=== PATIENT | female | born 1960 | race Caucasian/White ===

== ENCOUNTER → 2023-09-30 | Outpatient (CLI) | payer SELFPAY ==
--- NOTE | 2023-09-30 13:36 | CT_ITS ---
CT RIGHT LOWER EXTREMITY WITH 3-D IMAGING CLINICAL INDICATION: OA TECHNIQUE: Axial CT images of the right lower extremity (including right hip, right knee, and right ankle) was performed without IV contrast material. Coronal and sagittal reformats were provided. RADIATION DOSAGE (If Supplied By Facility): CTDIvol = ( 19.06 ) mGy, DLP = ( 1252.70 ) mGycm COMPARISON: No relevant prior comparison study available. FINDINGS: Bones: There is a right hip arthroplasty in place, with no periprosthetic fracture. There is moderate degenerative arthrosis of the medial femorotibial compartment of the right knee with moderate joint space narrowing and marginal osteophyte formation. There is mild degenerative arthrosis of the patellofemoral and lateral femorotibial compartments of the right knee with marginal osteophyte formation. Unremarkable right ankle. Osseous structures are intact without evidence of fracture or dislocation. No lytic or blastic osseous masses. Soft Tissues: There is a small right knee joint effusion. The deep soft tissue structures are unremarkable. The superficial soft tissues are unremarkable without evidence of edema, hematoma, or foreign body. CT/Extremity Lower without Contra IMPRESSION: Tricompartment degenerative arthrosis of the right knee, most pronounced in the medial femorotibial compartment. Small right knee joint effusion. Electronically Signed: Casper George MD at 14:32 EDT Reading Location ID and State: [facility] / [place] , Service support ,
== END | disposition home or self-care (01) ==
PROVIDERS: PCP Internal Medicine; Referring Provider Student in an Organized Health Care Education/Training Program; Visit Provider Student in an Organized Health Care Education/Training Program
DX: M17.11 Unilateral primary osteoarthritis, right knee (principal)
CPT/HCPCS: 73700; 93005

== ENCOUNTER → 2023-10-07 | Outpatient (CLI) | payer SELFPAY ==
[2023-10-07 10:34] LABS: Absolute Lymphocyte Count 1.82 X10^3/uL (0.83-4.51); Absolute Neutrophil Count 3.1 X10^3/uL (2.0-7.7); Basophil# 0.05 X10^3/uL; Basophil% 0.9 % (0-1); Eosinophil# 0.41 X10^3/uL; Eosinophils% 7.1 % (0-5); Hemoglobin 13.7 g/dL (12.0-15.0); Lymphocyte # 1.82 X10^3/ul (0.83-4.51); Lymphocyte % 31.5 % (19-41); Mean Corp Hgb Conc 32.6 g/dL (32-36); Mean Corpuscular Hgb 29.6 pg (27.0-32.0); Mean Corpuscular Volume 90.7 fL (81-99); Mean Platelet Vol. 11.4 fl (6.2-12.0); Monocyte% 6.9 % (0-10); NRBC Flagged by Analyzer 0 % (0-5); Neutrophil # 3.09 X10^3/uL (2.7-7.7); Neutrophil % 53.4 % (47-70); Platelet Count 238 K/mm3 (150-450); RBC Distribution Width CV 12.4 % (11.6-14.6); RBC Distribution Width SD 41.2 fl (35.1-43.9); Red Blood Count 4.63 M/mm3 (4.2-5.4); White Blood Count 5.8 K/mm3 (4.4-11.0)
[2023-10-07 11:18] LABS: ALB/GLOB Ratio 0.9 RATIO (0.9-2.4); AST(SGOT) 11 U/L (15-37); Alanine Aminotransfer ALT/SGPT 19 U/L (13-56); Albumin, Serum 3.5 g/dL (3.2-5.0); Alkaline Phosphatase 84 U/L (45-117); Anion Gap 9 (5-15); BUN 18 mg/dL (7-18); BUN/Creat Ratio 18.1 RATIO (10-20); Calcium,Total 8.8 mg/dL (8.5-10.1); Chloride 106 mmol/L (98-107); EST Glomerular Filtration Rate 60 mL/min (>60); Est Glom Filt Rate - Afr Amer 72 mL/min (>60); Globulin 3.7 g/dL (2.2-4.2); Glucose 109 mg/dL (74-106); Potassium 3.9 mmol/L (3.5-5.1); Protein, Total 7.2 g/dL (6.4-8.2); Sodium Level 137 mmol/L (136-145)
[2023-10-07 11:19] LABS: Hemoglobin A1c 5.2 % (3.8-5.6)
== END | disposition home or self-care (01) ==
PROVIDERS: PCP Internal Medicine; Referring Provider Student in an Organized Health Care Education/Training Program; Visit Provider Student in an Organized Health Care Education/Training Program
DX: M17.11 Unilateral primary osteoarthritis, right knee (principal); M25.761 Osteophyte, right knee; M22.11 Recurrent subluxation of patella, right knee
CPT/HCPCS: 36415; 80053; 83036; 85025

== ENCOUNTER → 2023-10-21 | Outpatient (CLI) | payer SELFPAY ==
--- NOTE | 2023-10-21 07:15 | KNEE_PTH ---
PATIENT: FRANKLIN COOLEY LOC: [facility] U#:[id number] AGE/SX: 63/F ROOM: RE10/21/[address]: Dr. Yosvany Gay DO : 1960 BED: DIS: 10/21/2023 SPEC #: [id number] RECD: 10/21/23 15:18 STATUS: PARKER REDian #: [id number] ROM: 10/21/23 07:[address]: Yosvany Gay DEPT: SURGICAL PATHOLOGY RECD BY: Leti Castrejon ENTERED: 10/22/23 10:55 SP TYPE: TOTAL KNEE OTHR DR: Dr. Stephanie Flanagan MD Tissues: A - Synovial tissue of joint, NOS B - Knee, NOS Procedures: Decalcification bone/plaque Surgery Specimen Level IV HEADER OPERATION: Right robotic assisted total knee arthroplasty PRE-OP DIAGNOSIS: Grade IV osteoarthritis, right knee TISSUE SUBMITTED: A- Right knee synovium, B- Right knee bone and tissue MICROSCOPIC DIAGNOSIS A. Right knee synovium, excision: Fragments of fibroadipose tissue, fibroconnective tissue, skeletal muscle tissue and moderately reactive synovial tissue. B. Bone and soft tissue, right knee, total knee replacement/resection: Pieces of bone with degenerative osteoarthritic changes. Fibroadipose tissue, fibroconnective tissue and reactive synovial tissue. AKBAR: 10/27/2023 MICROSCOPIC DESCRIPTION Slides are reviewed. GROSS DESCRIPTION A. Received in fixative is one container labeled with the patient's name and designated Right knee synovium. The specimen consists of multiple pieces of yellow-orange soft tissue measuring in aggregate 6.5 x 5.0 x 2.0cm. No mass lesion is identified. Industrial Maintenance Mechanic sections are submitted in two cassettes. B. Received is one container designated bone and soft tissue right knee. The specimen consists of multiple fragments of joseph-yellow bone measuring in aggregate 11.0 x 10.5 x 3.0 cm. Also present in the specimen container are multiple fragments of yellow-white soft tissue measuring in aggregate 9.0 x 8.0 x 3.0 cm. A number of bony fragments contain articular surfaces consistent with tibial plateau and femoral condyle and displaying prominent osteophyte formation, eburnation and bone erosion. Industrial Maintenance Mechanic sections are submitted in two cassettes as follows: 1 - soft tissue, 2 - bone after decalcification. / AKBAR/ 10/22/2023 TC:5 CPT: 25634b0, 88725
== END | disposition home or self-care (01) ==
LOC: LABSPEC 16:49
PROVIDERS: PCP Internal Medicine; Referring Provider Student in an Organized Health Care Education/Training Program; Visit Provider Student in an Organized Health Care Education/Training Program
DX: M17.11 Unilateral primary osteoarthritis, right knee (principal)
CPT/HCPCS: 88305; 88311

== ENCOUNTER → 2024-06-15 | Outpatient (CLI) | payer SELFPAY ==
--- NOTE | 2024-06-15 07:57 | CT_ITS ---
PROCEDURE: EXTREMITY LOWER WITHOUT CONTRA REASON FOR EXAM: Osteoarthritis. Pain. TECHNIQUE: Noncontrasted CT of the femora and pelvis, with sagittal and coronal reconstructed images also obtain ed. COMPARISON: Prior CT examination 09/30/2023. FINDINGS: Evaluation limited by metallic artifact from a right total knee prosthesis and from a right total hip prosthesis. A small right knee joint effusion is noted. No findings are seen to suggest loosening of the right k nee prosthesis. No significant left knee joint effusion is noted. Tricompartmental left knee degenerative changes are seen, with probable mild medial joint narrowing. Moderate to severe narrowing of the patellofemoral articulation is seen, also with lateral subluxatio n of the patella prominently noted. No evidence of loosening of the right hip prosthesis is seen. Moderate left hip joint degenerative changes are noted, with moderately severe central joint narrowin g, in particular present. No evidence of left femoral head osteonecrosis. No acute fracture or dislocation is seen. Of the visualized lumbosacral spine, significant degenerative changes are noted, particularly at the lumbosacral junction. CT/Extremity Lower without Contra IMPRESSION: 1. Moderate left hip joint degenerative changes. 2. Right knee prosthesis, also with joint effusion present. 3. No evidence of loosening of either the right total hip prosthesis or the rig ht total knee prosthesis is identified. 4. Left knee degenerative changes, most prominent at the patellofemoral articul ation, also with lateral subluxation of the patella noted. One or more dose reduction techniques were used (e.g., Automated exposure contr ol, adjustment of the mA and/or kV according to patient size, use of iterative reconstruction technique). Reading Location: [id number]
== END | disposition home or self-care (01) ==
PROVIDERS: PCP Internal Medicine; Referring Provider Student in an Organized Health Care Education/Training Program; Visit Provider Student in an Organized Health Care Education/Training Program
DX: M16.12 Unilateral primary osteoarthritis, left hip (principal)
CPT/HCPCS: 73700

== ENCOUNTER 2024-06-28 09:04 | Day surgery (SDC) | payer SELFPAY ==
[2024-06-15 08:48] LABS: Absolute Lymphocyte Count 1.88 X10^3/uL (0.83-4.51); Absolute Neutrophil Count 3.1 X10^3/uL (2.0-7.7); Basophil# 0.05 X10^3/uL; Basophil% 0.9 % (0-1); Eosinophil# 0.11 X10^3/uL; Hematocrit 40.7 % (37-47); Hemoglobin 13.6 g/dL (12.0-15.0); Lymphocyte # 1.88 X10^3/ul (0.83-4.51); Lymphocyte % 33.5 % (19-41); Mean Corp Hgb Conc 33.4 g/dL (32-36); Mean Corpuscular Hgb 29.2 pg (27.0-32.0); Mean Corpuscular Volume 87.3 fL (81-99); Mean Platelet Vol. 11.2 fl (6.2-12.0); Monocyte# 0.41 X10^3/uL; Monocyte% 7.3 % (0-10); NRBC Flagged by Analyzer 0 % (0-5); Neutrophil # 3.14 X10^3/uL (2.7-7.7); Neutrophil % 55.9 % (47-70); Platelet Count 233 K/mm3 (150-450); RBC Distribution Width CV 12.5 % (11.6-14.6); RBC Distribution Width SD 39.6 fl (35.1-43.9); Red Blood Count 4.66 M/mm3 (4.2-5.4); White Blood Count 5.6 K/mm3 (4.4-11.0)
[2024-06-15 09:10] LABS: Albumin, Serum 3.6 g/dL (3.2-5.0); Anion Gap 6 (5-15); BUN 21 mg/dL (7-18); BUN/Creat Ratio 22.4 RATIO (10-20); Calcium,Total 9.7 mg/dL (8.5-10.1); Chloride 107 mmol/L (98-107); Creatinine, Serum 0.94 mg/dL (0.55-1.02); EST Glomerular Filtration Rate 64 mL/min (>60); Est Glom Filt Rate - Afr Amer 77 mL/min (>60); Glucose 94 mg/dL (74-106); Potassium 3.7 mmol/L (3.5-5.1); Sodium Level 139 mmol/L (136-145)
[2024-06-15 09:19] LABS: Magnesium 2.2 mg/dL (1.6-2.6)
[2024-06-28] VITALS (11 sets, daily range): BP systolic 108–134; BP diastolic 60–88; PULSE 57–96; RESP 16–17; TEMP 36.1–36.6; O2SAT 97–100; BMI 34.8
[2024-06-28] MEDS: Lactated Ringers 1,000 ML 999 ML IV (09:39)
[2024-06-28] MEDS: Magnesium 1 GM over 15 mins IV (09:39)
[2024-06-28] MEDS: Acetaminophen 500 MG Tablet 1000 MG PO (09:40)
[2024-06-28] MEDS: Gabapentin 600 MG Tablet PO (09:40)
[2024-06-28] MEDS: Celecoxib 200 MG Capsule 400 MG PO (09:40)
--- NOTE | 2024-06-28 10:10 | PCM.PRE.AN2 ---
ASA Classification* ASA Classification ASA Classification: 2 Assessment & Plan Anesthesia* Anesthesia Assessment Anesthesia Assessment: Discussed sedation and/or anesthesia options, risks, benefits, and alternatives with patient/parents/legal guardian/POA. Questions invited. The patient/parents/legal guardian/POA seems to understand and agrees to proceed with anesthesia plan. Reviewed the physical assessment, medical history, allergy history and patient home medications list prior to surgery/procedure/anesthetic and documented any changes. Performed airway and anesthesia risk assessments. Anesthesia Type Anesthesia Type: Spinal Anesthesia Focused Assessment* Temperature: 98 F Pulse Rate: 93 Blood Pressure: 134/85 Respiratory Rate: 16 Pulse Ox: 97 Airway Assessment Mouth opens: >3 cm Mallampati Score: II Focused Labs Anesthesia Preop lab: CBC WBC 5.6 K/mm3 (4.4-11.0) 06/15/24 08:23 06/15/24 RBC 4.66 M/mm3 (4.2-5.4) 06/15/24 08:23 06/15/24 Hgb 13.6 g/dL (12.0-15.0) 06/15/24 08:23 06/15/24 Hct 40.7 % (37-47) 06/15/24 08:23 06/15/24 Plt Count 233 K/mm3 (150-450) 06/15/24 08:23 06/15/24 CHEMISTRY Potassium 3.7 mmol/L (3.5-5.1) 06/15/24 08:23 06/15/24 Sodium 139 mmol/L (136-145) 06/15/24 08:23 06/15/24 Magnesium 2.2 mg/dL (1.6-2.6) 06/15/24 08:23 06/15/24 BUN 21 mg/dL (7-18) H 06/15/24 08:23 06/15/24 Creatinine 0.94 mg/dL (0.55-1.02) 06/15/24 08:23 06/15/24 Glucose 94 mg/dL (74-106) 06/15/24 08:23 06/15/24 COAG Pre-Assessment Diagnosis/Proposed Procedure Planned Operative Procedure(s): ROBOTIC ASSISTED LEFT TOTAL HIP ARTHROPLASTY Anesthesia History Anesthesia History - adobe layer: Anesthesia History - adobe layer Hx Hospitalization No 06/03/24 14:08 Any Problems With Anesthesia No 06/03/24 14:08 Cholinesterase deficiency No 06/03/24 14:08 You/Your Family Experience No 06/03/24 14:08 fever (hyperthermia) with Relationship Recent Exposure to Contagious No 06/28/24 09:27 Disease Does patient have nerve No 06/03/24 14:08 stimulator Patient instructed to have device shut off --Does patient have Pacemaker No 06/28/24 09:27 or ICD? When Was Last Pacemaker Check QUESTION #4 FULL TEXT: You/Your Family Experience fever (hyperthermia) with Anesthesia Last Oral Intake Last Oral intake: Last Oral Intake NPO since 23:30 06/28/24 09:27 Meds taken in AM with sips of No 06/28/24 09:27 water? Meds patient instructed to take am of surgery PONV PONV - adobe layer: PONV - adobe layer Female Yes 06/03/24 14:08 HX of Motion Sickness No 06/03/24 14:08 HX of N/V After Surgery No 06/03/24 14:08 Non-Smoker Yes 06/03/24 14:08 Duration of Surgery greater Yes 06/03/24 14:08 than 60 minutes Number of Risk Factors 3 06/03/24 14:08 PONV Score Moderate Risk 06/03/24 14:08 Height & Weight Height & Weight: Anesthesia: Height & Weight Height 5 ft 5 in 06/28/24 09:27 Weight: 95 kg 06/28/24 09:27 Body Mass Index (BMI) 34.8 06/28/24 09:27 Respiratory Assessment Respiratory Assessment - adobe layer: Respiratory Tract Infection Hx - adobe layer Hx Respiratory Tract Infection No 06/03/24 14:08 STOP Sleep Apnea STOP Sleep Apnea - adobe layer: STOP Sleep Apnea - adobe layer Hx Hypertension Yes: CONTROLLED WITH MED 06/03/24 14:08 Hx Sleep Apnea No 06/03/24 14:08 CPAP BIPAP Do you snore loudly (louder No 06/03/24 14:08 than talking or can be heard Do you often feel tired/ No 06/03/24 14:08 fatigued/ sleepy during daytime? Has anyone observed you stop No 06/03/24 14:08 breathing during sleep? STOP Results Negative 06/03/24 14:08 QUESTION #5 FULL TEXT : Do you snore loudly (louder than talking or can be heard through closed doors)? Tobacco Use History Tobacco Use History - adobe layer: Tobacco Use History - adobe layer Tobacco Use Smoking Status Never smoker 06/03/24 14:08 Hx Tobacco Use No 06/03/24 14:08 Years Smoking Packs Smoked per Day Smoking Cessation Date was within the last 15 years Hx Smoking Cessation Date Hx Smoking Cessation Counseling Hematologic Medial History Hematologic Hx - adobe layer: Hematologic Medical Hx - insurance claims processor Hx of Blood Transfusion No 06/03/24 14:08 Hx of Transfusion in last 3 No 06/03/24 14:08 Months Date of Last Transfusion (if within last 3 months) Ever experience any problems No 06/03/24 14:08 with transfusion(s)? Specify any problems Hx of Preganancy in last 3 No 06/03/24 14:08 Months Nurse Filling Out Transfusion DSCHRIBER 06/03/24 14:08 & Questions: Date: 06/03/24 06/03/24 14:08 Time: 14:09 06/03/24 14:08 Patient unable to answer at this time (ie. confused, unrespo /Reproduction History /Reproductive History - adobe layer: /Reproductive Hx- adobe layer Hx Now No 06/03/24 14:08 Gestational Age (in weeks): EDC: Hx Hx Para Hx Section SAB No 06/03/24 14:08 Active Medications Active Medications: Current Medications Generic Name Dose Route Start Last Admin Trade Name Freq PRN Reason Stop Dose Admin Acetaminophen 1,000 mg 06/28/24 11:20 06/28/24 09:40 Acetaminophen 500 Mg Tablet PO 06/28/24 11:21 1,000 mg X1 ONE Administration Celecoxib 400 mg 06/28/24 11:20 06/28/24 09:40 Celecoxib 200 Mg Capsule PO 06/28/24 11:21 400 mg X1 ONE Administration Sodium Chloride 77.4 ml/ 0 ml 06/28/24 11:20 Ropivacaine 200 mg/ OPERA.SITE 06/28/24 11:21 Epinephrine HCl 0.6 mg/ X1 ONE Ketorolac Tromethamine 30 mg/ Morphine Sulfate 5 mg Dexamethasone Sodium Phosphate 10 mg 06/28/24 11:20 Dexamethasone 10 Mg/Ml Vial IV 06/28/24 11:21 X1 ONE Gabapentin 600 mg 06/28/24 11:20 06/28/24 09:40 Gabapentin 600 Mg Tablet PO 06/28/24 11:21 600 mg X1 ONE Administration Lactated Ringer's 1,000 mls @ 999 mls/hr 06/28/24 11:20 06/28/24 09:39 IV 06/28/24 12:20 999 mls/hr .Q1H1M SRAVANTHI Administration Cefazolin Sodium 2 gm/ N/A 20 mls @ 400 mls/hr 06/28/24 11:20 IV 06/28/24 11:22 PREOP ONE Tranexamic Acid 1,000 mg/ 110 mls @ 660 mls/hr 06/28/24 11:20 Sodium Chloride IV 06/28/24 11:29 X1 ONE Tranexamic Acid 1,000 mg/ 110 mls @ 660 mls/hr 06/28/24 12:20 Sodium Chloride IV 06/28/24 12:29 X1 ONE Lactated Ringer's 1,000 mls @ 999 mls/hr 06/28/24 12:20 IV 06/28/24 13:20 .Q1H1M SRAVANTHI Lactated Ringer's 1,000 mls @ 125 mls/hr 06/28/24 13:20 IV 06/28/24 21:19 .Q8H SRAVANTHI Magnesium Sulfate 1 gm/ 102 mls @ 408 mls/hr 06/28/24 11:20 06/28/24 09:39 Dextrose IV 06/28/24 11:34 408 mls/hr X1 ONE Administration Insulin Human Lispro 1 - 6 unit 06/28/24 11:20 Insulin Lispro 100 Unit/Ml Insuln.Pen SC 06/28/24 17:20 Q4H PRN PRN BG>/= 180, SEE PROTOCOL Protocol PFSH Medical History Cancer Post-menopausal Alcohol use Arthritis Back pain Heartburn Non-smoker History of pain when walking History of echocardiogram History of stress test Hypertension Home Medications ?Medication ?Instructions ?Recorded ?Last Taken ?Type calcium carbonate (Calcium 600) 600 mg PO DAILY 06/03/24 Unknown History cholecalciferol (vitamin D3) 50 100 mcg PO DAILY 06/03/24 Unknown History mcg (2,000 unit) tablet (Vitamin D3) losartan 50 mg tablet (Cozaar) 50 mg PO DAILY 06/03/24 06/27/24 History Allergy/AdvReac Type Severity Reaction Status Date / Time No Known Allergies Allergy Verified 06/28/24 09:27 Surgical History Hx of colonoscopy Hx of bilateral oophorectomy History of lumpectomy of right breast Hx of total hip arthroplasty Hx of total knee arthroplasty Social History Smoking Status: Never smoker Review of Systems (Anesthesia) ROS Narrative System reviewed and no additional complaints, except as documented.
[2024-06-28 10:11] LABS: Bedside Glucose 97 mg/dL (74-106)
--- NOTE | 2024-06-28 11:20 | FEM_PTH ---
PATIENT: FRANKLIN COOLEY LOC[place] [facility] [place][id number] AGE/SX: 64/F ROOM: RE06/28/[address]: Dr. Yosvany Gay DO : 1960 BED: DIS: 06/28/2024 SPEC #: [id number] RECD: 06/28/24 17:59 STATUS: PARKER REQ #: [id number] ROM: 06/28/24 11:[address]: Yosvany Gay DEPT: SURGICAL PATHOLOGY RECD BY: Leti Castrejon ENTERED: 06/29/24 07:43 SP TYPE: FEM HEAD OTHR DR: Dr. Stephanie Flanagan MD Tissues: Femoral region, NOS Procedures: Decalcification bone/plaque Surgery Specimen Level V HEADER OPERATION: Robotic assisted left total hip arthroplasty PRE-OP DIAGNOSIS: Osteoarthritis left hip TISSUE SUBMITTED: Left femoral head MICROSCOPIC DIAGNOSIS Left hip bone and soft tissue, total hip replacement/resection: Femoral head with degenerative osteoarthritic changes. SJ: 07/02/2024 MICROSCOPIC DESCRIPTION Slides are reviewed. GROSS DESCRIPTION Received is one container labeled with the patient's name and designated bone and soft tissue left hip. The specimen consists of a joseph femoral head with portion of femoral neck. The femoral head measures 5.5 x 5.5 x 3.5 cm and the femoral neck measures up to 1.5 cm in length. The articular surface displays prominent osteophyte formation, eburnation and bone erosion. Soft tissue entirely consists of bone reamings measuring in aggregate 5 x 4 x 1 cm. Woodwind Instrument Repairer sections are submitted in two cassettes as follows: 1 - bone reamings, 2 - bone after decalcification. / AKBAR. 06/29/2024 TC:5 [facility]: [id number], [id number]
[2024-06-28] MEDS: Cefazolin 2 GM in Syringe 10 ML IV (11:36)
[2024-06-28] MEDS: dexAMETHasone 10 MG/ML Vial IV (11:55)
[2024-06-28] MEDS: TXA 1000mg in NS100 100ml (IVPB at Incision) 660 MG IV (11:55)
[2024-06-28] MEDS: JPS (Morphine 10mg/ml) OPERA.SITE (13:07)
[2024-06-28] MEDS: TXA 1000mg in NS100 100ml (IVPB at Closure) 660 MG IV (13:27)
--- NOTE | 2024-06-28 14:40 | RAD_ITS ---
PROCEDURE: HIP MIN 2 VIEWS (PORTABLE) REASON FOR EXAM: Postop. TECHNIQUE: Two-view postoperative left hip, to include a low centered AP pelvis COMPARISON: None. RAD/Hip Min 2 Views (Portable) IMPRESSION: Limited imaging of the right hip shows stable appearance of the total hip prost hesis. A left total hip prosthesis is seen, with satisfactory alignment. No complication is seen. No fracture site is evident. Reading Location: [id number]
--- NOTE | 2024-06-28 15:16 | PCM.POST.ANE ---
Anesthesia: Postop Eval I Current Vital Signs Temperature: 98 F Pulse Rate: 93 Blood Pressure: 134/85 Respiratory Rate: 17 Pulse Ox: 98 Oxygen Delivery Method: Room Air Assessment Airway patent: Yes Spontaneous unlabored respirations: Yes Mental status: Awake and Calm nausea: No Vomiting: No Anesthesia Complication: No Fluid Hydration Crystalloid volume administer (ml): 1,300 Total IV fluid infused: 1,300 Progress Note Anesthesia document: Postop Eval 1 completed: Yes
--- NOTE | 2024-06-28 15:52 | POSTOPAN2_ITS ---
Anesthesia Postop Eval I Sum Postop Eval Completion status Anesthesia document: Postop Eval 1 completed: Yes Anesthesia Postop Eval I Summary Anesthesia Postop Eval I Summary: Anesthesia Postop Eval I: Assessment Summary Airway patent Yes 06/28/24 15:16 MEDICAL SERVICE REPRESENTATIVE.[email or web address] Spontaneous unlabored Yes 06/28/24 15:16 MEDICAL SERVICE REPRESENTATIVE.[email or web address] respirations Mental status Awake,Calm 06/28/24 15:16 MEDICAL SERVICE REPRESENTATIVE.[email or web address] nausea No 06/28/24 15:16 MEDICAL SERVICE REPRESENTATIVE.[email or web address] Vomiting No 06/28/24 15:16 MEDICAL SERVICE REPRESENTATIVE.JBLOU Anesthesia Postop Eval I: Fluid Summary Crystalloid volume administer 1,300 06/28/24 15:16 MEDICAL SERVICE REPRESENTATIVE.JBLOU (ml) Colloids volume administered ( ml) Blood Product volume administered (ml) Total IV fluid infused 1,300 06/28/24 15:16 MEDICAL SERVICE REPRESENTATIVE.JBLOU Anesthesia Postop Eval I: Summary Notes Anesthesia Complication No 06/28/24 15:16 MEDICAL SERVICE REPRESENTATIVE.JBLOU Anesthesia Complication Comment: Post-operative progress note Anesthesia: Postop Eval II Evaluation Mental status: Awake Pain Level: 1 nausea: No Vomiting: No
--- NOTE | 2024-06-28 15:52 | PCM.POSTANE2 ---
Anesthesia Postop Eval I Sum Postop Eval Completion status Anesthesia document: Postop Eval 1 completed: Yes Anesthesia Postop Eval I Summary Anesthesia Postop Eval I Summary: Anesthesia Postop Eval I: Assessment Summary Airway patent Yes 06/28/24 15:16 LANDING SCALER.[email or web address] Spontaneous unlabored Yes 06/28/24 15:16 LANDING SCALER.[email or web address] respirations Mental status Awake,Calm 06/28/24 15:16 LANDING [email or web address].[email or web address] nausea No 06/28/24 15:16 LANDING SCALER.[email or web address] Vomiting No 06/28/24 15:16 LANDING SCALER.[email or web address] Anesthesia Postop Eval I: Fluid Summary Crystalloid volume administer 1,300 06/28/24 15:16 LANDING SCALER.JBLOU (ml) Colloids volume administered ( ml) Blood Product volume administered (ml) Total IV fluid infused 1,300 06/28/24 15:16 LANDING SCALER.[email or web address] Anesthesia Postop Eval I: Summary Notes Anesthesia Complication No 06/28/24 15:16 LANDING SCALER.[email or web address] Anesthesia Complication Comment: Post-operative progress note Anesthesia: Postop Eval II Evaluation Mental status: Awake Pain Level: 1 nausea: No Vomiting: No
--- NOTE | 2024-06-28 16:24 | OP.PCM_ITS ---
Operative Report (Standard) Operative Information Date of Procedure: 06/28/24 Pre-Operative Diagnosis: Left hip osteoarthritis Post-Operative Diagnosis: Left hip osteoarthritis Surgery/Procedure Performed: Left total hip arthroplasty with robotic arm inocente xavier patent attorney: Yes Computer Security Coordinator: Lisa Chavez Tasks completed by first cook: Opening & closing, Implanting device and Hemostasis: Electrocautery Additional assistant professor of sociology?: No Type of Anesthesia: MAC and Spinal RN Documented Start/Stop Times: Operation Date: 06/28/24 11:20 Case Time Into Pre-Op 06/28/24 09:07 Out of Pre-Op 06/28/24 11:35 Anesthesia Start 06/28/24 11:36 Into Room 06/28/24 11:36 Procedure Start 06/28/24 12:08 Procedure End 06/28/24 14:11 Anesthesia End 06/28/24 14:14 Out of Room 06/28/24 14:14 Into Recovery 06/28/24 14:20 Out of Recovery 06/28/24 15:35 Into Phase II Recovery 06/28/24 15:38 Procedure Start Time: 12:08 Procedure Stop Time: 14:11 Select all DRAINS/GRAFTS/IMPLANTS that apply: Implanted device Implanted device details: [place] high offset insignia hip stem size #4, [employer] delta ceramic V 40 femoral head 36 mm outer diameter +5 mm neck length, [place] Trident X3 standard polyethylene insert, Trident 2 TriTanium cluster hole acetabular shell 50 mm diameter Estimated Blood Loss: 100 cc Specimen collected: Yes Description of specimen(s) removed: Left femoral head Description of surgery: I greeted the patient in same-day surgery holding area the day of surgery. She was identified by name, medical record number, and date of . All questions were answered to patient satisfaction. The operative extremity was marked with a surgical marker. Informed consent was confirmed with the patient. Patient underwent spinal anesthetic in the PACU prior to the procedure. At time of her procedure, patient brought the operative suite and positioned supine initially on a standard operating table. Gentle MAC anesthesia was administered. Patient was then positioned in a lateral decubitus position with the left side up. An axillary roll was placed under the patient's right axilla. The right fibular head was free. We then prepped and draped the left lower extremity in normal, sterile orthopedic fashion. Prior to the procedure, the Reji plan was reviewed and appeared appropriate based on the patient's CT scan and anatomy. We performed a timeout with all parties in attendance in agreement with the side, site, and operation to be performed. No concerns were voiced and would like to proceed. 1 g TXA IV as well as 2 g Ancef was administered prior to the incision by anesthesia staff. 1 g TXA IV was administered at time of closure additionally. I first elected to place our pelvic array with a curvilinear incision over the iliac crest just posterior to the ASIS. I bluntly dissected down the level of the periosteum. I then drilled 3 intracortical pins with excellent cortical purchase. Pelvic array was then assembled and positioned appropriately. I then turned my attention to the hip. A standard posterior lateral incision was made curvilinear over the posterior lateral hip, centered on the tip of the greater trochanter. Full-thickness skin incision was made, approximately 15 cm in length. I sharply dissected down the level of the fascia steph. Fascia steph was then incised in line with the incision. I bluntly dissected through the raphae of the gluteus joyce. Femoral checkpoint was placed at this point. We then registered her femoral anatomy prior to dislocating the hip. I then internally rotated the hip. Limited gluteal bursectomy was performed to identify the short external rotators. A Cobra retractor was placed in his gluteus medius. Short external rotators were taken down with Bovie cautery and tagged for later repair with #2 Ethibond suture. This identified the underlying capsule. A hockey- stick shaped capsulotomy was made over the femoral neck carried posteriorly to the acetabular labrum. Labrum was released and the hip was dislocated. I then marked a standard femoral neck cut 1 fingerbreadth above the lesser trochanter. Sagittal saw was used to carefully cut the femoral neck. Femoral head was removed and examined and appeared benign. It was sent to pathology per hospital policy. I then turned my attention to the acetabulum. Cobra retractors were placed anterior and posteriorly. Self-retaining retractor was placed superiorly. Acetabular labrum was excised with a long handled knife. Acetabular pulmonary was excised with Bovie cautery. Hemostasis was excellent at this point. I then registered the acetabulum with the Outitude robot successfully. I then brought in the Reji robot with the acetabular reaming arm to a size 50. This was reamed a nd the planned position to the planned depth. Reamer was then removed. There was excellent bleeding bone at the base and excellent remaining anterior posterior frankel of the acetabulum. 50mm acetabular component was selected for and attached to the casing in line setter arm of the robot. I placed the acetabular component near planned position before attaching to the robot. The robot then held the cuff in position while I impacted it to an appropriate depth. The acetabular cup was then removed from the robotic arm. It had excellent rim fit. I then selected a standard polyethylene liner and impacted this per director of gift planning recommendations. I then turned my attention to the femur. Box chisel was then utilized to gain access to the femoral canal. Canal finder was placed. Sequential broaches were used and press-fit manner. A final size 4 achieved excellent vertical and rotational stability. We then trialed with a high offset hip stem as templated. A +5 and +7.5 mm neck length were trialed. 5 mm neck achieved greater stability as well as allowed some lengthening of the limb, which was desired given his contralateral hip osteoarthritis. Trials were then removed. We copiously irrigated the wound with normal saline solution, Betadine solution, and irrisept solution. A size 4 stem was then impacted with excellent fixation. Final head was then impacted over clean, dry Cortez taper neck. Final reduction was performed. A posterior capsular repair was performed with #2 Ethibond suture and bone tunnels, as well as the short external rotator repair. Femoral checkpoint was removed. Pelvic array pins were removed. IT band was closed watertight with #1 strata fix suture. Deeper fascial layers were closed with 0 Vicryl suture in interrupted fashion. Subcutaneous layers were reapproximated with 2-0 Vicryl suture and skin reapproximated with running subcuticular 3?0 strata fix and skin glue. Pelvic array incision was closed with buried 2-0 Vicryl suture and skin glue.. A silv er dressing was applied. Patient tolerated procedure well without complication. She was positioned back in the supine position on his hospital bed. She was transferred to PACU in stable condition. A pillow was placed between the patient's leg to be present while he is in bed. Need for skilled assistant professor of sociology: Lisa Chavez PA-C was critical to the outcome of the case. During the course of the procedure the physician assistant professor of sociology played a vital role. Her intimate knowledge of my steps in the procedure aided in safe and expedient completion of the procedure. The PA played a vital role in position ing particularly in obtaining the appropriate positioning. The PA was also vital in the retraction of soft tissues during the exposure and projecting vital structures. The PA was also vital and protecting soft tissues during times of bony cuts. She also played a vital role in closure with my direct supervision. The PA was also important during reduction and dislocation of the joint and trials intraoperatively. Post Operative Plan: Patient will discharge home after meeting same-day surgery criteria. Weightbearing: Weightbearing as tolerated left lower extremity, posterior hip precautions Antibiotics: Ancef dose prior to discharge DVT Prophylaxis: Aspirin 81 mg twice daily to start tomorrow Olivas: None Dressing: Maintain silver dressing x 5 days X-Rays: PACU x-rays were reviewed demonstrated well-positioned right total hip arthroplasty implant. Follow-up 2-week x-rays in the office. Follow-up: 2 weeks in my office as scheduled Surgical Findings: Severe left hip osteoarthritis. Stable hip following final implantation and reduction Complications Complications: No Admit VTE Documentation VTE Present on Admission: No VTE Mechan Device Prophylaxis: SCD's and Knee High ERNESTO Hose VTE Pharm Prophylaxis ordered?: Yes
[2024-06-28] MEDS: Cefazolin 1 GM/50 ML BAG IV (16:34)
== END 2024-06-28 17:44 | disposition home or self-care (01) ==
LOC: SDC 09:05 → AC 09:06
PROVIDERS: Anesthesiology; PCP Internal Medicine; Referring Provider Student in an Organized Health Care Education/Training Program; Visit Provider Student in an Organized Health Care Education/Training Program
PROC: 8E0Y0CZ Robotic Assisted Procedure of Lower Extremity, Open Approach (ICD-10-PCS; CPT 27130; principal; 2024-06-28 10:50)
DX: M16.12 Unilateral primary osteoarthritis, left hip (principal); I10 Essential (primary) hypertension; Z79.82 Long term (current) use of aspirin; Z79.899 Other long term (current) drug therapy; Z79.1 Long term (current) use of non-steroidal anti-inflammatories (NSAID)
CPT/HCPCS: 27130; S2900; 01214; 36415; 73502; 80048; 82040; 82962; 83735; 85025; 87081; 88307; 88311; 97162; C1713; C1776; J2405; J3475